=== PATIENT | female | born 1985 | race Caucasian/White ===

== ENCOUNTER 2017-01-01 14:08 | Outpatient (CLI) | payer BC, MEDICAID ==
[2017-01-01 15:04] LABS: APPEARANCE,URINE SLIGHTLY-CLOUDY; BILIRUBIN,URINE NEGATIVE (NEGATIVE); GLUCOSE, URINE NEGATIVE (NEGATIVE); KETONES,URINE 20 mg/dL (NEGATIVE); LEUKOCYTE ESTERASE,URINE MODERATE (NEGATIVE); NITRITE,URINE NEGATIVE (NEGATIVE); PROTEIN,URINE NEGATIVE (NEGATIVE); URINE SPECIFIC GRAVITY 1.008; UROBILINOGEN,URINE NEGATIVE mg/dL (<2.0)
[2017-01-01 15:44] LABS: URINE BARBITURATES SCREEN NEGATIVE; URINE METHADONE SCREEN NEGATIVE; URINE PHENCYCLIDINE SCREEN NEGATIVE
[2017-01-01 15:53] LABS: URINE OPIATES LOW UNCONFIRMED POSITIVE
--- NOTE | 2017-01-01 16:50 | Non Stress Test Report ---
Non Stress Test Datetime Report Generated by CPN: 01/01/2017 16:50 DEMOGRAPHIC EGA NST: 33.4 INDICATION Indication for Study: Other Indication for Study (NST) Other: LABOR CHECK MONITORING Monitor Explained: Monitor Explained; Test Explained; Patient Verbalized Understanding Time on Monitor: 01/01/2017 14:53 Time off Monitor: 01/01/2017 15:38 NST Duration: 45 NST INTERVENTIONS NST Interventions: PO Hydration; Reposition Patient Physician Notified NST: H. DrakeCNM BABY A: [id number] BABY A Movement : Present Contraction Frequency : none FHR Baseline : 135 Accelerations : 15X15 Decelerations : None Variability : Moderate 6-25bpm NST Review: Meets Criteria for Reactive NST NST Review and Verified By : Cindy Sims RN NST Results: Reactive NST REPORT Report Trigger: Send Report
== END 2017-01-01 16:10 | disposition home or self-care (01) ==
LOC: LC 14:08
PROVIDERS: ATTEND Specialist
PROC: 4A1HXCZ Monitoring of Products of Conception, Cardiac Rate, External Approach (ICD-10-PCS; principal; 2017-01-01)
DX: O47.03 False labor before 37 completed weeks of gestation, third trimester (principal); M54.9 Dorsalgia, unspecified; Z3A.33 33 weeks gestation of pregnancy
CPT/HCPCS: 36415; 59025; 80307; 81001

== ENCOUNTER 2017-02-13 13:32 | Inpatient (IN) | payer BC, MEDICAID ==
[2017-02-13] MEDS ORDERED: RINGERS SOLUTION,LACTATED 1,000 ML IV PRN (15:51)
[2017-02-13] MEDS ORDERED: RINGERS SOLUTION,LACTATED 1,000 ML IV ONE (15:51)
[2017-02-13 16:19] LABS: HEMATOCRIT 36.5 % (36.0-47.0); HEMOGLOBIN 12.2 g/dL (12.0-15.5); HGB HCT DIFFERENCE 0.1; MEAN CORPUSCULAR HEMOGLOBIN 30.8 pg (27.0-33.4); MEAN CORPUSCULAR HGB CONC 33.3 g/dL (32.0-36.0); MEAN CORPUSCULAR VOLUME 93 fl (80-97); RED BLOOD COUNT 3.94 10^6/uL (3.72-5.28); RED CELL DISTRIBUTION WIDTH 12.9 % (11.5-14.0); WHITE BLOOD COUNT 17.2 10^3/uL (4.0-10.5)
[2017-02-13] MEDS ORDERED: MISOPROSTOL 0.2 MG TABLET ONE (16:32)
[2017-02-13] MEDS ORDERED: FENTANYL CITRATE INJ/PF 100 MCG/2 ML AMPUL ONE (16:32)
[2017-02-13] MEDS ORDERED: EPHEDRINE SULFATE INJ 50 MG/1 ML AMPULE ONE (16:32)
[2017-02-13] MEDS ORDERED: LIDOCAINE 1% INJ-PF (10 MG/ML) 30 ML SDV ONE (16:33)
[2017-02-13] MEDS ORDERED: OXYTOCIN/NORMAL SALINE 20 UNIT/1,000 ML RTUINJ ONE (16:33)
[2017-02-13] MEDS ORDERED: FENTANYL/BUPIVACAINE/NS/PF 200 MCG/100 ML RTUINJ EPI ONE (16:33)
[2017-02-13] MEDS ORDERED: BUPIVACAINE HCL 0.25 % INJ/PF (2.5 MG/1 ML) 30 ML VIAL ONE (16:33)
[2017-02-13] MEDS ORDERED: PHENYLEPHRINE HCL INJ/PF 10 MG/1 ML SDV ONE (16:33)
[2017-02-13 16:56] LABS: APPEARANCE,URINE SLIGHTLY-CLOUDY; BILIRUBIN,URINE NEGATIVE (NEGATIVE); GLUCOSE, URINE NEGATIVE (NEGATIVE); KETONES,URINE 80 mg/dL (NEGATIVE); LEUKOCYTE ESTERASE,URINE TRACE (NEGATIVE); NITRITE,URINE NEGATIVE (NEGATIVE); PROTEIN,URINE NEGATIVE (NEGATIVE); URINE SPECIFIC GRAVITY 1.013; UROBILINOGEN,URINE NEGATIVE mg/dL (<2.0)
[2017-02-13 17:16] LABS: URINE BARBITURATES SCREEN NEGATIVE; URINE METHADONE SCREEN NEGATIVE; URINE OPIATES LOW NEGATIVE; URINE PHENCYCLIDINE SCREEN NEGATIVE
--- NOTE | 2017-02-13 18:30 | L&D Progress Notes ---
PROGRESS NOTES Datetime Report Generated by CPN: 02/13/2017 18:30 PROGRESS NOTE Impression: Normal Progression of Labor; Reassuring Heart Rate Procedures: Artificial ROM; Sterile Vag Exam Plan: Continue Present Management Informed Consent Obtained: Vaginal Delivery; Risks, Benefits and Alternatives Discussed Vital Signs : Reviewed; Within Normal Limits Comment: SVE 5-6/90/-1 w AROM with moderate meconium noted. Patient comfortable with epidural. VAGINAL EXAM Dilatation: 5 Dilatation: 5 Effacement: 90 Effacement: 80 Station: -1 Station: -2 MEMBRANES Membranes: Ruptured Membranes: Intact Amniotic Fluid Color: Meconium, Heavy FETUS A FHR - Baseline: 135 Monitoring: External US Variability: Moderate 6-25bpm Accelerations: 15X15 Decelerations: None FHR Category: Category I Presentation: Vertex SIGNATURE SIGNATURE: [id number] SIGNATURE: [id number] Assignment: Carol Morgan MD Signature: with User ID: [email or web address] : with User ID: [email or web address] : I personally evaluated and examined the patient in conjunction with the MLP and agree with the assessment, treatment plan and disposition.
[2017-02-13] MEDS ORDERED: DIPH/PERTUSS(ACELL)/TETANUS VAC/PF 0.5 ML SYR (>=10YO) IM PRN (21:13)
[2017-02-13] MEDS ORDERED: PROMETHAZINE HCL 25 MG TABLET PO PRN (21:13)
[2017-02-13] MEDS ORDERED: PROMETHAZINE HCL INJ 25 MG/1 ML VIAL IV PRN (21:13)
[2017-02-13] MEDS ORDERED: DIBUCAINE 1% OINTMENT 28 GM TP PRN (21:13)
[2017-02-13] MEDS ORDERED: MAGNESIUM HYDROXIDE SUSP 30 ML UDCUP PO PRN (21:13)
[2017-02-13] MEDS ORDERED: BENZOCAINE/MENTHOL AEROSOL SPRAY 56 ML TOP PRN (21:13)
[2017-02-13] MEDS ORDERED: ACETAMINOPHEN WITH CODEINE #3 TABLET PO PRN (21:13)
[2017-02-13] MEDS ORDERED: OXYTOCIN/NORMAL SALINE 1,000 ML IV PRN (21:13)
[2017-02-13] MEDS ORDERED: PSEUDOEPHEDRINE HCL 30 MG TABLET PO PRN (21:13)
[2017-02-13] MEDS ORDERED: PROMETHAZINE HCL 25 MG SUPP.RECT PR PRN (21:13)
[2017-02-13] MEDS ORDERED: ZOLPIDEM TARTRATE 5 MG TABLET PO PRN (21:13)
[2017-02-13] MEDS ORDERED: ACETAMINOPHEN 650 MG SUPP.RECT PR PRN (21:13)
[2017-02-13] MEDS ORDERED: GLYCERIN/WITCH HAZEL LEAF 1 EACH MED..PAD TP PRN (21:13)
[2017-02-13] MEDS ORDERED: DIPHENHYDRAMINE HCL 25 MG CAPSULE PO PRN (21:13)
[2017-02-13] MEDS ORDERED: MEASLES,MUMPS&RUBELLA VACC/PF 0.5 ML VIAL SUBCUT PRN (21:13)
[2017-02-13] MEDS ORDERED: NA PHOS,M-B/NA PHOS,DI-BA (ADULT) 133 ML ENEMA PR PRN (21:13)
--- NOTE | 2017-02-13 21:52 | Delivery Summary ---
Del Sum A-C Datetime Report Generated by CPN: 02/13/2017 21:52 DELIVERY PERSONNEL DELIVERY PERSONNEL: [id number] Delivery Doctor:: Carol Morgan MD Labor and Delivery Nurse:: Gemma Cespedes RN Nursery Nurse:: ANDREW Dunbar Nursery Nurse:: Tara Espinal RN Social Staff Worker/REGIONAL ACCOUNT MANAGER: Destin Wallace CNA MATERNAL INFORMATION Delivery Anesthesia: Epidural Medications After Delivery: Pitocin Bolus-Please Comment; Pitocin Drip 20 Units/1000ml NSS Estimated Blood Loss (ml): 200 Maternal Complications: Abnormal Cord Length Other Maternal Complications: short cord/friable Provider Comments: VMI delivered in SABINA presentation. No nuchal cord. Shoulders and body delivered w/o difficulty. Cord clamped and cut and noted to be very friable throughout and with each clamp the cord tore. Placenta and cord sent due to friable cord and meconium. Placenta delivered intact spontaneously and uterine exploration negative for retained products. Lacerations repaired in usual fashion. Good hemostasis. FF at U. Apgars 8/8. Baby to nursery. Mother stable upon provider leaving the room. LABOR SUMMARY EDC: 02/15/2017 00:00 No. Babies in Womb: 1 Attempted: No Labor Anesthesia: Epidural LABOR INFORMATION Reason for Induction: Not Applicable Onset of Labor: 02/13/2017 10:45 Complete Dilatation: 02/13/2017 20:21 Oxytocin: N/A Group B Beta Strep: negative Antibiotics # of Doses: 0 Antibiotics Time of Last Dose: N/A Name of Antibiotic Given: N/A Steroids Given: None Reason Steroids Not Administered: Not Applicable MEMBRANES Membranes Rupture Method: Artificial Rupture of Membranes: 02/13/2017 18:21 Length of Rupture (hr): 2.12 Amniotic Fluid Color: Moderate Meconium Amniotic Fluid Amount: Moderate Amniotic Fluid Odor: None STAGES OF LABOR Stage 1 hr: 9 Stage 1 min: 36 Stage 2 hr: 0 Stage 2 min: 7 Stage 3 hr: 0 Stage 3 min: 3 Total Time in Labor hr: 9 Total Time in Labor min: 46 VAGINAL DELIVERY Episiotomy: None Laceration Extension: First Degree Laceration Type: Perineal Other Laceration: periurethral with repair Laceration Repair: Yes Laceration Repair Note: !st degree ML perineal and periurethral laceration repaired in usual fashion. Good hemostasis. Sponge Count Correct: N/A Sharps Count Correct: Yes CSECTION DELIVERY Primary Indication: N/A Secondary Indication: N/A CSection Incidence: N/A Labor: N/A Elective: N/A CSection Incision: N/A BABY A INFORMATION Delivery Date/Time: 02/13/2017 20:28 Method of Delivery: Vaginal Born in Route : No : N/A Forceps: N/A Vacuum Extraction: N/A Shoulder Dystocia : No PRESENTATION/POSITION BABY A Presentation: Cephalic Cephalic Presentation: Vertex Vertex Position: OA Breech Presentation: N/A PLACENTA INFORMATION BABY A Placenta Delivery Time : 02/13/2017 20:31 Placenta Method of Delivery: Spontaneous Placenta Status: Delivered SCORES BABY A Heart Rate 1 min: >100 bpm Resp Effort 1 min: Slow, Irregular Reflex Irritability 1 min: Cough or Sneeze or Pulls Away Muscle Tone 1 min: Active Motion Color 1 min: Body [place], Extremities Blue Resuscitation Effort 1 min: Tactile Stimulation SCORE 1 MIN: 8 Heart Rate 5 min: >100 bpm Resp Effort 5 min: Slow, Irregular Reflex Irritability 5 min: Cough or Sneeze or Pulls Away Muscle Tone 5 min: Active Motion Color 5 min: Body [place], Extremities Blue Resuscitation Effort 5 min: N/A SCORE 5 MIN: 8 INFORMATION BABY A Gestational Age at Delivery: 39.5 Gestational Status: Full Term- 39- 40.6 Weeks Outcome : Liveborn Infant Condition : Stable Infant Sex: Male IDENTIFICATION BABY A Verification Date/Time: 02/13/2017 20:34 ID Band Number: [id number] Mother's Name Verified: Yes Infant RN Verifying Infant: J, RN Additional Verifying Personnel: DJayyTona, [place]/REGIONAL ACCOUNT MANAGER WEIGHT/LENGTH BABY A Infant Birthweight (gm): 3350 Weight (lb): 7 Weight (oz): 6 Length (in): 21.00 Infant Length (cm): 53.34 CORD INFORMATION BABY A No. Cord Vessels: 3 Nuchal Cord : N/A Cord Blood Taken: Yes-For Storage (Mom's Blood type +) Infant Suction: Mouth; Nose ASSESSMENT BABY A Infant Complications: Meconium; Other Infant Complications- Other: short friable cord Physical Findings at Delivery: Within Normal Limits Respirations: Intercostal Retractions Skin to Skin: Yes Welt Insole Channeler/ALS Called : No Care By: Elizabeth RN Transferred To: Nursery BABY B INFORMATION : N/A SIGNATURES Signature: with User ID: [email or web address] : I personally evaluated and examined the patient in conjunction with the MLP and agree with the assessment, treatment plan and disposition.
[2017-02-13] MEDS: IBUPROFEN 800 MG TABLET PO SCH (22:20)
[2017-02-13] MEDS ORDERED: IBUPROFEN 800 MG TABLET ONE (22:21)
--- NOTE | 2017-02-13 22:47 | Admission Physical ---
Datetime Report Generated by CPN: 02/13/2017 22:47 CURRENT ADMISSION Chief Complaint: Uterine Contractions Admit Plan: Admit to Unit; Initiate Labor Protocol; Initiate Labor Augmentation Protocol ALLERGIES Medication Allergies: No Medication Allergies: No Known Allergies (02/13/2017) Medication Allergies: No Known Allergies (01/01/2017) Medication Allergies: No Known Allergies (10/08/2013) Latex: Latex Allergies OBSTETRICAL HISTORY EDC: 02/15/2017 00:00 : 3 Para: 2 Term: 2 : 0 SAB: 0 IAB: 0 Ectopic: 0 Livin Cesareans: 0 VBACs: 0 Multiple Births: 0 Gestational Diabetes: Yes Rh Sensitization: No Incompetent Cervix: No ASHLEY: No Infertility: No ART Treatment: No Uterine Anomaly: No IUGR: No Hx Previous C/S: No Macrosomia: No Hx Loss/Stillborn: No PIH: No Hx : No Placenta Previa/Abruption: No Depression/PP Depression: No PTL/PROM: No Post Hemorrhage: No Current Procedures: Ultrasound Obstetrical History Comments: male 7lb 7oz 40 weeks 10/10/2013 male 8lb 12oz 39.5 weeks SEE RECORDS Alcohol: No Marijuana : No Cocaine: No Other Illicit Drugs: No Cigarettes: Former Smoker. [id number] MEDICAL HISTORY Diabetes: No Diabetes Type: Gestational Diabetes Blood Transfusion: No Pulmonary Disease (Asthma, TB): No Breast Disease: No Hypertension: No Polysomnography Tech Surgery: No Heart Disease: No Hosp/Surgery: Yes Autoimmune Disorder: No Anesthetic Complications: No Kidney Disease: No Abnormal Pap Smear: Yes Neuro/Epilepsy: No Psychiatric Disorders: No Other Medical Diseases: No Hepatitis/Liver Disease: No Significant Family History: No Varicosities/Phlebitis: No Trauma/Violence : No Thyroid Dysfunction: No Medical History Comments: childbirth 2013 ascus repeat in Dec normal, smoking cessation start of , UTI 12-06-16 GDM diet control INFECTIOUS HISTORY Gonorrhea: No Genital Herpes: No Chlamydia: No Tuberculosis: No Syphilis: No Hepatitis: No HIV/AIDS Exposure: No Rash or Viral Illness: No HPV: No PHYSICAL EXAM General: Normal HEENT: Normal Neurologic: Normal Thyroid: Normal Heart: Normal Lungs: Normal Breast: Deferred Back: Normal Abdomen: Normal Genitourinary Exam: Normal Extremities: Normal DTRs: Normal Pelvic Type: Adequate Vital Signs: Reviewed VAGINAL EXAM Dilatation: 5 Dilatation: 5 Effacement: 90 Effacement: 80 Station: -1 Station: -2 MEMBRANES Membranes: Ruptured Membranes: Intact Amniotic Fluid Color: Meconium, Heavy FETUS A EGA: 39.5 Monitoring: External US FHR- Baseline: 155 Variability: Moderate 6-25bpm Accelerations: 10X10 Decelerations: None FHR Category: Category II Presentation: Vertex Admit Comment: at 39+5 presented with regular uterine ctx and cvx 3cm. 2 hours later cvx was rechecked and changed to 5cm. A1GDM and sugars in good control. GBS negative. She would like an epidural. Will admit and facilitate pain control. Consider augmentation if needed. Smoker and ASCUS pap. Need repeat pap Jun 2017. o/w uncomplicated. Anticpate . PLANS FOR LABOR AND DELIVERY Labor and Delivery: None Pain Management: Epidural Feeding Preference: Breast Benefit of Breast Feed Discussed: Yes Circumcision: Yes INFORMED CONSENT Informed Consent Obtained: Vaginal Delivery; Risks, Benefits and Alternatives Discussed Signature: with User ID: [email or web address] : I personally evaluated and examined the patient in conjunction with the MLP and agree with the assessment, treatment plan and disposition.
[2017-02-13] MEDS: FAMOTIDINE 20 MG TABLET PO SCH (23:30)
[2017-02-13] MEDS: ACETAMINOPHEN WITH CODEINE #3 TABLET PO PRN (23:32)
[2017-02-14] MEDS: IBUPROFEN 800 MG TABLET PO SCH ×3 (05:54→21:52)
[2017-02-14] MEDS: ACETAMINOPHEN WITH CODEINE #3 TABLET PO PRN (06:04)
[2017-02-14 08:26] LABS: HEMOGLOBIN 11.7 g/dL (12.0-15.5); HGB HCT DIFFERENCE 0.1; MEAN CORPUSCULAR HEMOGLOBIN 30.3 pg (27.0-33.4); MEAN CORPUSCULAR HGB CONC 33.5 g/dL (32.0-36.0); MEAN CORPUSCULAR VOLUME 90 fl (80-97); RED BLOOD COUNT 3.87 10^6/uL (3.72-5.28); RED CELL DISTRIBUTION WIDTH 13.1 % (11.5-14.0); WHITE BLOOD COUNT 19.9 10^3/uL (4.0-10.5)
[2017-02-14] MEDS: DOCUSATE SODIUM 100 MG CAPSULE PO SCH ×2 (10:31→17:34)
[2017-02-14] MEDS: PRENATAL VITAMIN W-O CA NO5/FE FUMARATE/FA CAPSULE PO SCH (10:32)
[2017-02-14] MEDS: FERROUS SULFATE 325 MG TABLET PO SCH ×2 (10:32→17:34)
[2017-02-14] MEDS: FAMOTIDINE 20 MG TABLET PO SCH ×2 (10:32→21:52)
[2017-02-14] MEDS: SENNOSIDES/DOCUSATE 8.6-50 MG 1 EACH TABLET PO SCH (10:33)
--- NOTE | 2017-02-14 11:15 | PDOC PROGRESS REPORT ---
Subjective-OB Subjective: Post Delivery Day:1 31 year old G3 now P3 s/p ppd1. Denies any needs at this time Physical Exam (OB) Vital Signs: Temp Pulse Resp BP Pulse Ox 97.8 F 73 16 108/58 L 99 02/14/17 08:31 02/14/17 08:31 02/14/17 08:31 02/14/17 08:31 02/14/17 08:31 Intake & Output 02/13/17 02/14/17 02/15/17 06:59 06:59 06:59 Weight 72.575 kg - General General Appearance: Appears well In distress: None - Episiotomy/Laceration Site Condition: Well Approximated - Lochia Lochia Amount: Scant < 10 ml Lochia Color: Rubra/Red - Abdomen Description: Soft Hernia Present: No Fundal Description: Firm, Midline Describe if Not Midline: Deviated to Right Fundal Height: u/u - u/2 - Respiratory Respiratory Status: No respiratory distress - Extremities Upper extremity: Normal inspection Lower extremities: Normal inspection - Neurological Cognition: Normal Orientation: AAOx4 - Psychological Associated symptoms: Normal affect, Normal mood Objective-Diagnostic Laboratory: 02/14/17 07:53 02/13/17 02/13/17 02/13/17 15:58 15:58 16:10 WBC 17.2 H RBC 3.94 Hgb 12.2 Hct 36.5 MCV 93 MCH 30.8 MCHC 33.3 RDW 12.9 Plt Count 240 Urine Color YELLOW Urine Appearance SLIGHTLY-CLOUDY Urine pH 6.0 Ur Specific [place] 1.013 Urine Protein NEGATIVE Urine Glucose (UA) NEGATIVE Urine Ketones 80 H Urine Blood NEGATIVE Urine Nitrite NEGATIVE Ur Leukocyte Esterase TRACE H Blood Type AB POSITIVE Antibody Screen NEGATIVE 02/14/17 07:53 WBC 19.9 H RBC 3.87 Hgb 11.7 L Hct 35.0 L MCV 90 MCH 30.3 MCHC 33.5 RDW 13.1 Plt Count 258 Urine Color Urine Appearance Urine pH Ur Specific [place] Urine Protein Urine Glucose (UA) Urine Ketones Urine Blood Urine Nitrite Ur Leukocyte Esterase Blood Type Antibody Screen Assessment and Plan(PN) - Assessment and Plan (1) Vaginal delivery Is this a current diagnosis for this admission?: YesPlan: continue stay (2) Gestational diabetes, diet controlled Qualifiers: Trimester: unspecified trimester Qualified Code(s): O24.410 - Gestational diabetes mellitus in , diet controlled Is this a current diagnosis for this admission?: YesPlan: continue stay - Time Spent with Patient Time with patient: 15-25 minutes Medications reviewed and adjusted accordingly: Yes - Disposition Anticipated Discharge: Home Within: within 24 hours
[2017-02-15] MEDS: IBUPROFEN 800 MG TABLET PO SCH (05:30)
[2017-02-15 07:44] LABS: ABSOLUTE EOSINOPHILS # (AUTO) 0.3 10^3/uL (0.0-0.6); ABSOLUTE LYMPHOCYTES (AUTO) 3.5 10^3/uL (0.5-4.7); ABSOLUTE MONOCYTES (AUTO) 0.9 10^3/uL (0.1-1.4); ABSOLUTE NEUT (AUTO) 7.7 10^3/uL (1.7-8.2); BASOPHILS % (AUTO) 0.3 % (0-2); EOSINOPHILS % (AUTO) 2.1 % (0-6); HEMATOCRIT 35.2 % (36.0-47.0); HEMOGLOBIN 11.6 g/dL (12.0-15.5); HGB HCT DIFFERENCE -0.4; LYMPHOCYTES % (AUTO) 28.6 % (13-45); MEAN CORPUSCULAR HEMOGLOBIN 30.4 pg (27.0-33.4); MEAN CORPUSCULAR VOLUME 92 fl (80-97); MONOCYTES % (AUTO) 6.9 % (3-13); RED BLOOD COUNT 3.82 10^6/uL (3.72-5.28); RED CELL DISTRIBUTION WIDTH 13.1 % (11.5-14.0); SEGMENTED NEUTROPHILS % (AUTO) 62.1 % (42-78); WHITE BLOOD COUNT 12.4 10^3/uL (4.0-10.5)
[2017-02-15 09:03] VITALS: BP 126/80
--- NOTE | 2017-02-15 09:22 | PDOC PROGRESS REPORT ---
Subjective-OB Subjective: Post Delivery Day: 31 year old. Denies any needs at this time Doing well, ready to go home, voiding, ambulating, scant bleeding breast feeding Physical Exam (OB) Vital Signs: Temp Pulse Resp BP Pulse Ox 98.3 F 67 16 126/80 H 100 02/15/17 08:22 02/15/17 08:22 02/15/17 08:22 02/15/17 08:22 02/15/17 08:22 Intake & Output 02/14/17 02/15/17 02/16/17 06:59 06:59 06:59 Intake Total 1250 Balance 1250 Weight 72.575 kg - Lochia Lochia Amount: Scant < 10 ml Lochia Color: Rubra/Red - Abdomen Description: Soft Hernia Present: No Fundal Description: Firm, Non-Midline Describe if Not Midline: Slightly deviated to right side of abdomen Fundal Height: u/u - u/2 Objective-Diagnostic Laboratory: 02/15/17 07:24 02/15/17 07:24 WBC 12.4 H RBC 3.82 Hgb 11.6 L Hct 35.2 L MCV 92 MCH 30.4 MCHC 33.0 RDW 13.1 Plt Count 279 Seg Neutrophils % 62.1 Lymphocytes % 28.6 Monocytes % 6.9 Eosinophils % 2.1 Basophils % 0.3 Absolute Neutrophils 7.7 Absolute Lymphocytes 3.5 Absolute Monocytes 0.9 Absolute Eosinophils 0.3 Absolute Basophils 0.0 Assessment and Plan(PN) - Assessment and Plan (1) Vaginal delivery Is this a current diagnosis for this admission?: Yes (2) Gestational diabetes, diet controlled Qualifiers: Trimester: second trimester Qualified Code(s): O24.410 - Gestational diabetes mellitus in , diet controlled Is this a current diagnosis for this admission?: Yes - Time Spent with Patient Time with patient: Less than 15 minutes Medications reviewed and adjusted accordingly: Yes - Disposition Anticipated Discharge: Home Within: Other - home today
--- NOTE | 2017-02-15 09:26 | PDOC DISCHARGE SUMMARY ---
Final Diagnosis Discharge Date: 02/15/17 - Final Diagnosis (1) Vaginal delivery Is this a current diagnosis for this admission?: Yes (2) Gestational diabetes, diet controlled Is this a current diagnosis for this admission?: Yes Discharge Data - Discharge Medication Home Medications: Vit#96/Ferrous Fum/FA [ Tablet] 1 tab PO DAILY 10/08/13 Gestational Age: 39.5 Reason(s) for Admission: Onset of Labor, Gestional Diabetes Procedures: NST, Ultrasound Intrapartum Procedure(s): Spontaneous Vaginal Delivery Complication(s): Laceration-Perineal, Laceration-Periurethral Laceration-Degree: 1st - [place] Data Baby 1 Male at 1 minute: 8 at 5 minutes: 8 Weight: 3.345 kg Home with Mother: Yes Complications: No - Diagnosis Test Laboratory: Temp Pulse Resp BP Pulse Ox 98.3 F 67 16 126/80 H 100 02/15/17 08:22 02/15/17 08:22 02/15/17 08:22 02/15/17 08:22 02/15/17 08:22 02/13/17 02/13/17 02/14/17 15:58 16:10 07:53 RBC 3.94 3.87 Hgb 12.2 11.7 L Hct 36.5 35.0 L Urine Opiates Screen NEGATIVE 02/15/17 07:24 RBC 3.82 Hgb 11.6 L Hct 35.2 L Urine Opiates Screen - Discharge information/Instructions Discharge Activity: Activity As Tolerated, No Lifting Over 10 Pounds, No Lifting /Push/Pulling, Pelvic Rest Discharge Diet: As Tolerated Disposition: HOME, SELF-CARE Follow [facility] with: [facility] in: 4, Weeks
[2017-02-15] MEDS: PRENATAL VITAMIN W-O CA NO5/FE FUMARATE/FA CAPSULE PO SCH (09:51)
[2017-02-15] MEDS: DOCUSATE SODIUM 100 MG CAPSULE PO SCH (09:52)
[2017-02-15] MEDS: FERROUS SULFATE 325 MG TABLET PO SCH (09:53)
[2017-02-15] MEDS: SENNOSIDES/DOCUSATE 8.6-50 MG 1 EACH TABLET PO SCH (09:53)
[2017-02-15] MEDS: FAMOTIDINE 20 MG TABLET PO SCH (09:53)
[2017-02-15] MEDS: ACETAMINOPHEN WITH CODEINE #3 TABLET PO PRN (11:40)
== END 2017-02-15 15:18 | disposition home or self-care (01) | DRG 775 ==
LOC: LC 13:32 → LR 16:05 → 2S 22:45
PROVIDERS: ADMIT Student in an Organized Health Care Education/Training Program; ATTEND Student in an Organized Health Care Education/Training Program
PROC: 10E0XZZ Delivery of Products of Conception, External Approach (ICD-10-PCS; principal; 2017-02-13)
PROC: 0UQMXZZ Repair Vulva, External Approach (ICD-10-PCS; 2017-02-13)
PROC: 0HQ9XZZ Repair Perineum Skin, External Approach (ICD-10-PCS; 2017-02-13)
PROC: 10907ZC Drainage of Amniotic Fluid, Therapeutic from Products of Conception, Via Natural or Artificial Opening (ICD-10-PCS; 2017-02-13)
PROC: 4A1HXCZ Monitoring of Products of Conception, Cardiac Rate, External Approach (ICD-10-PCS; 2017-02-13)
DX: O24.420 Gestational diabetes mellitus in childbirth, diet controlled (principal); O70.0 First degree perineal laceration during delivery; O71.82 Other specified trauma to perineum and vulva; O77.0 Labor and delivery complicated by meconium in amniotic fluid; O69.89X0 Labor and delivery complicated by other cord complications, not applicable or unspecified; Z87.891 Personal history of nicotine dependence; Z3A.39 39 weeks gestation of pregnancy; Z37.0 Single live birth
CPT/HCPCS: 36415; 80307; 81005; 85025; 85027; 86592; 86850; 86900; 86901; 88307; 88312; J2370; J2590; J3010; J3490